=== PATIENT | male | born 1950 | race Caucasian/White ===

== ENCOUNTER 2018-08-24 12:04 | Observation (INO) ==
[2018-08-24] MEDS ORDERED: 0.9 % Sodium Chloride 1,000 ML IVC ONE (12:36)
[2018-08-24] MEDS ORDERED: Ondansetron 4 MG/2 ML VIAL IVP ONE (13:43)
[2018-08-24 14:28] LABS: INR 1.1; Prothrombin Time 12.3 Seconds (9.4-12.1)
[2018-08-24 14:31] LABS: Activated Partial Thrombo Time 31.7 Seconds (26.0-36.0)
[2018-08-24 14:34] LABS: Basophils % 0.6 %; Eosinophils # 0.1 K/mcL (0.0-0.6); Eosinophils % 1.3 %; Hematocrit 46.1 % (37.5-50.1); Hemoglobin 15.3 g/dL (12.9-16.9); Immature Granulocytes % 0.4 % (0-4); Lymphocytes # 1.6 K/mcL (0.6-4.6); Lymphocytes % 22.2 %; Mean Corpuscular HGB Conc 33.2 g/dL (31.6-35.5); Mean Corpuscular Hemoglobin 29.3 pg (28.0-33.3); Mean Corpuscular Volume 88.3 fL (83.0-100.0); Mean Platelet Volume 10.5 fL (9.4-12.4); Monocytes # 0.6 K/mcL (0.0-1.3); Monocytes % 8.6 %; Neutrophils # 4.8 K/mcL (1.6-8.9); Platelet Count 175 K/mcL (140-400); Red Blood Count 5.22 M/mcL (4.19-5.50); Red Cell Distribution Width 12.7 % (11.5-14.5); Segmented Neutrophils % 66.9 %; White Blood Count 7.2 K/mcL (4.3-11.1)
[2018-08-24 14:44] LABS: Troponin I < 0.03 ng/mL (< 0.04)
[2018-08-24 14:51] LABS: BUN/Creatinine Ratio 10 (6-26); Blood Urea Nitrogen 10 mg/dL (8-23); Calcium 9.1 mg/dL (8.6-10.3); Carbon Dioxide 26 mEq/L (23-29); Chloride 111 mEq/L (98-107); Glucose 92 mg/dL (70-105); Osmolality,Calculated 291 (280-300); Sodium 141 mEq/L (136-145); eGFR For African Americans > 60 (> 60); eGFR For Non-African Americans > 60 (> 60)
[2018-08-24 14:57] LABS: Thyroid Stimulating Hormone 0.903 mcIU/mL (0.340-5.600)
[2018-08-24] MEDS ORDERED: Naloxone 0.4 MG/ML INJ IVP PRN (17:37)
[2018-08-24] MEDS ORDERED: Isovue-370 500 ML INFUS..BTL IV ONE (18:13)
[2018-08-24] MEDS: levETIRAcetam 250 MG TABLET PO SCH (21:02)
[2018-08-24] MEDS ORDERED: Ondansetron 4 MG/2 ML VIAL IVP PRN (21:30)
[2018-08-24] MEDS ORDERED: Aspirin Enteric Coated 81 MG Tablet PO SCH (23:15)
[2018-08-24] MEDS ORDERED: lisinopriL 20 MG TABLET PO SCH (23:15)
[2018-08-25 05:38] LABS: Basophils # 0.1 K/mcL (0.0-0.2); Eosinophils # 0.5 K/mcL (0.0-0.6); Eosinophils % 5.9 %; Hematocrit 44.2 % (37.5-50.1); Hemoglobin 14.9 g/dL (12.9-16.9); Immature Granulocytes % 0.2 % (0-4); Lymphocytes # 2.7 K/mcL (0.6-4.6); Mean Corpuscular HGB Conc 33.7 g/dL (31.6-35.5); Mean Corpuscular Hemoglobin 29.6 pg (28.0-33.3); Mean Corpuscular Volume 87.9 fL (83.0-100.0); Mean Platelet Volume 10.1 fL (9.4-12.4); Monocytes # 0.7 K/mcL (0.0-1.3); Neutrophils # 4.1 K/mcL (1.6-8.9); Platelet Count 163 K/mcL (140-400); Red Blood Count 5.03 M/mcL (4.19-5.50); Red Cell Distribution Width 12.9 % (11.5-14.5); Segmented Neutrophils % 50.9 %; White Blood Count 8.1 K/mcL (4.3-11.1)
[2018-08-25 07:22] LABS: BUN/Creatinine Ratio 12 (6-26); Blood Urea Nitrogen 12 mg/dL (8-23); Calcium 8.9 mg/dL (8.6-10.3); Carbon Dioxide 23 mEq/L (23-29); Chloride 109 mEq/L (98-107); Glucose 98 mg/dL (70-105); Osmolality,Calculated 290 (280-300); Sodium 140 mEq/L (136-145); eGFR For African Americans > 60 (> 60); eGFR For Non-African Americans > 60 (> 60)
[2018-08-25] MEDS: levETIRAcetam 250 MG TABLET PO SCH (09:22)
[2018-08-25] MEDS ORDERED: carvediloL 6.25 MG TABLET PO SCH (11:30)
[2018-08-25 12:18] VITALS: BP 124/73
== END 2018-08-25 18:00 | disposition home or self-care (01) ==
LOC: EMEROOARM 12:04 → 2NENU 12:04 → SUATTDRO 16:30 → 2NENU 17:16
PROVIDERS: ADMIT Internal Medicine; ATTEND Internal Medicine